=== PATIENT | male | born 1950 | race Caucasian/White ===

== ENCOUNTER 2019-04-25 16:00 | Emergency (ER) | payer OTHER ==
[2019-04-25 18:58] LABS: ABSOLUTE LYMPHOCYTES (AUTO) 2.6 10^3/uL (0.5-4.7); ABSOLUTE MONOCYTES (AUTO) 0.5 10^3/uL (0.1-1.4); ABSOLUTE NEUT (AUTO) 2.2 10^3/uL (1.7-8.2); BASOPHILS % (AUTO) 0.6 % (0-2); EOSINOPHILS % (AUTO) 0.8 % (0-6); HEMATOCRIT 47.5 % (37.9-51.0); HEMOGLOBIN 16.2 g/dL (13.5-17.0); MEAN CORPUSCULAR HEMOGLOBIN 31.1 pg (27.0-33.4); MEAN CORPUSCULAR HGB CONC 34.2 g/dL (32.0-36.0); MEAN CORPUSCULAR VOLUME 91 fl (80-97); MONOCYTES % (AUTO) 8.9 % (3-13); PLATELET COUNT 330 10^3/uL (150-450); RED BLOOD COUNT 5.22 10^6/uL (4.35-5.55); RED CELL DISTRIBUTION WIDTH 13.8 % (11.5-14.0); SEGMENTED NEUTROPHILS % (AUTO) 41.7 % (42-78); TOTAL CELLS COUNTED % (AUTO) 100 %; WHITE BLOOD COUNT 5.3 10^3/uL (4.0-10.5)
[2019-04-25 19:01] LABS: APPEARANCE,URINE SLIGHTLY-CLOUDY; BILIRUBIN,URINE NEGATIVE (NEGATIVE); COLOR,URINE AMBER; GLUCOSE, URINE NEGATIVE (NEGATIVE); KETONES,URINE NEGATIVE (NEGATIVE); LEUKOCYTE ESTERASE,URINE NEGATIVE (NEGATIVE); NITRITE,URINE NEGATIVE (NEGATIVE); PROTEIN,URINE 30 mg/dL (NEGATIVE); URINE SPECIFIC GRAVITY 1.023
[2019-04-25 19:13] LABS: ALKALINE PHOSPHATASE 106 U/L (38-126); ANION GAP 10 (5-19); ASPARTATE AMINO TRANSFERASE 64 U/L (17-59); BILIRUBIN,DIRECT 0.3 mg/dL (0.0-0.4); BILIRUBIN,TOTAL 0.8 mg/dL (0.2-1.3); BLOOD UREA NITROGEN 14 mg/dL (7-20); CARBON DIOXIDE 28 mmol/L (22-30); CHLORIDE 104 mmol/L (98-107); GLUCOSE 89 mg/dL (75-110); POTASSIUM 4.3 mmol/L (3.6-5.0); TOTAL PROTEIN 7.9 g/dL (6.3-8.2)
[2019-04-25 19:21] LABS: URINE AMPHETAMINES SCREEN NEGATIVE; URINE BARBITURATES SCREEN NEGATIVE; URINE BENZODIAZEPINES SCREEN NEGATIVE; URINE MARIJUANA (THC) SCREEN NEGATIVE; URINE METHADONE SCREEN NEGATIVE; URINE PHENCYCLIDINE SCREEN NEGATIVE
[2019-04-25 19:27] LABS: URINE COCAINE SCREEN UNCONFIRMED POSITIVE
--- NOTE | 2019-04-25 19:39 | ER Document Report ---
ED Medical Screen (RME) - General Chief Complaint: Wound Infection Stated Complaint: BACK PAIN Time Seen by Provider: 04/25/19 17:05 Mode of Arrival: Ambulatory Information source: Patient Notes: 68-year-old male presents emergency department with complaints of necrotic area to his back. He gives history of recent hospitalization in [place]. Reports that approximately 2 weeks ago he fell in his bedroom and laid there for 4 days. He was admitted to the hospital for rhabdo for approximately 10 days. He was treated for acute kidney injury, rhabdo and the wound to his back. He reports there is a black wound to his back. Patient's daughter brought him home and reports it is worse than she thought. Denies fever vomiting diarrhea. Patient has discharge instructions from his recent hospital stay with him. I have greeted and performed a rapid initial assessment of this patient. A comprehensive ED assessment and evaluation of the patient, analysis of test results and completion of the medical decision making process will be conducted by additional ED providers. TRAVEL OUTSIDE OF THE [place] IN LAST 30 DAYS: No - Related Data Allergies/Adverse Reactions: No Known Allergies Allergy (Verified 04/25/19 17:02) Past Medical History - Social History Frequency of alcohol use: None Drug Abuse: None Physical Exam - Vital signs Vitals: Temp Pulse Resp BP Pulse Ox 97.6 F 109 H 24 H 136/89 H 98 04/25/19 16:05 04/25/19 16:05 04/25/19 16:05 04/25/19 16:05 04/25/19 16:05 Course - Vital Signs Vital signs: Temp Pulse Resp BP Pulse Ox 97.6 F 109 H 24 H 136/89 H 98 04/25/19 16:05 04/25/19 16:05 04/25/19 16:05 04/25/19 16:05 04/25/19 16:05 - Laboratory Result Diagrams: 04/25/19 18:00 04/25/19 18:00 Laboratory results interpreted by me: 04/25/19 04/25/19 04/25/19 18:00 18:00 18:00 Lymph % (Auto) 48.0 H Seg Neutrophils % 41.7 L AST 64 H Urine Protein 30 H Urine Urobilinogen 2.0 H
--- NOTE | 2019-04-25 22:14 | ER Document Report ---
ED General - General Chief Complaint: Wound Infection Stated Complaint: BACK PAIN Time Seen by Provider: 04/25/19 17:05 Primary Care Provider: TORRES GILBERT [WELDING MACHINE ASSEMBLER] - Follow up as needed FAY LARA MD [ACTIVE STAFF] - Follow up as needed Mode of Arrival: Ambulatory Information source: Patient TRAVEL OUTSIDE OF THE [place] IN LAST 30 DAYS: No - HPI Onset: Other - over the last 1-2 weeks Onset/Duration: Gradual Quality of pain: Pressure Severity: Moderate Pain Level: 2 Associated symptoms: None. denies: Chills, Fever, Nausea, Vomiting Exacerbated by: Other - laying or sitting on his wound Relieved by: Other - sitting on Similar symptoms previously: No Recently seen / treated by doctor: No Notes: 68 year old male who was recently admitted to an outside hospital for Rhabdomyolisis after a fall and being unable to get up here for evaluation of a sacral decubitus ulcer. The patient was apparently laying on his apartment floor for 4-5 days and then he was laying in a hospital bed for over a week and at some point he developed an ulcer. One of the patient's family members noticed how bad the ulcer looked like today so the patient was told to come to an ER for evaluation. The patient has not been having systemic symptoms such as fevers, chills, sweats, nausea, vomiting. - Related Data Allergies/Adverse Reactions: No Known Allergies Allergy (Verified 04/25/19 17:02) Past Medical History - General Information source: Patient - Social History Smoking Status: Former Smoker Frequency of alcohol use: None Drug Abuse: None Lives with: Family Family History: Reviewed & Not Pertinent Patient has suicidal ideation: No Patient has homicidal ideation: No Review of Systems - Review of Systems Constitutional: No symptoms reported EENT: No symptoms reported Cardiovascular: No symptoms reported Respiratory: No symptoms reported Gastrointestinal: No symptoms reported Genitourinary: No symptoms reported Male Genitourinary: No symptoms reported Musculoskeletal: No symptoms reported Skin: Other - sacral decubitus ulcer with area of necrosis in the middle Hematologic/Lymphatic: No symptoms reported Neurological/Psychological: No symptoms reported -: Yes All other systems reviewed and negative Physical Exam - Vital signs Vitals: Temp Pulse Resp BP Pulse Ox 97.6 F 109 H 24 H 136/89 H 98 04/25/19 16:05 04/25/19 16:05 04/25/19 16:05 04/25/19 16:05 04/25/19 16:05 - Notes Notes: GENERAL: Well-appearing, well-nourished and in no acute distress. HEAD: Atraumatic, normocephalic. EYES: Pupils equal round and reactive to light, extraocular movements intact, sclera anicteric, conjunctiva are normal. ENT: TMs normal, nares patent, oropharynx clear without exudates. Moist mucous membranes. NECK: Normal range of motion, supple without lymphadenopathy or JVD. LUNGS: Breath sounds clear to auscultation bilaterally and equal. No wheezes rales or rhonchi. HEART: Regular rate and rhythm without murmurs, rubs or gallops. ABDOMEN: Soft, nontender, normoactive bowel sounds. No guarding, no rebound. No masses appreciated. EXTREMITIES: Normal range of motion, no pitting or edema. No clubbing or cyanosis. NEUROLOGICAL: Cranial nerves II through XII grossly intact. Normal speech, normal gait. PSYCH: Normal mood, normal affect. SKIN: Moderate sized sacral decubitus ulcer with most of the dermis still intact but an area of necorsis under the dermis in the middle of the ulcer. No active drainage. No fluid collections. No warmth. No surrounding erythema or warm of skin around the ulcer. Course - Re-evaluation Re-evalutation: 04/25/19 22:18 The patient has a sacral decubitus ulcer which has an area of necrotic tissue in the middle. The patient's dermis is still intact however making the staging difficult (stage 1-2 since no breakdown of skin but stage 4 since there is necrotic tissue). Patient is having no systemic signs of infection such as fevers, chills, sweats, nausea, vomiting and here in the ER his temp and WBC are normal. The wound edges seem to be healing well and there is no sign of an active infection of the skin or deep tissue on exam (no erythema, warmth, fluid collection). Plan to have nursing redress his wound in the ER and to have the patient follow up in the wound clinic. - Vital Signs Vital signs: Temp Pulse Resp BP Pulse Ox 98.0 F 74 16 132/78 H 98 04/25/19 22:24 04/25/19 22:24 04/25/19 22:24 04/25/19 22:24 04/25/19 16:05 - Laboratory Result Diagrams: 04/25/19 18:00 04/25/19 18:00 Laboratory results interpreted by me: 04/25/19 04/25/19 04/25/19 18:00 18:00 18:00 Lymph % (Auto) 48.0 H Seg Neutrophils % 41.7 L AST 64 H Urine Protein 30 H Urine Urobilinogen 2.0 H Discharge - Discharge Clinical Impression: Sacral decubitus ulcer Qualifiers: Pressure injury stage: unspecified pressure injury stage Qualified Code(s): L89.159 - Pressure ulcer of sacral region, unspecified stage Condition: Stable Disposition: HOME, SELF-CARE Instructions: Decubitus Ulcer ([facility]) Additional Instructions: Keep your sacral decubitus ulcer covered with a dressing until seen by wound care. Follow up in a Wound Care Clinic or with a Wound Care Surgeon. You may need debridement of your sacral decubitus ulcer in the near future so make an appointment to follow up [facility]. Seek medical attention sooner for signs of systemic infection such as fevers, chills, sweats, nausea, vomiting. Call the [facility] at to schedule an appointment for tomorrow or the next day. Referrals: TORRES GILBERT [WELDING MACHINE ASSEMBLER] - Follow up as needed FAY LARA MD [ACTIVE STAFF] - Follow up as needed
[2019-04-25 23:05] VITALS: BP 137/77
== END 2019-04-25 23:05 | disposition home or self-care (01) ==
LOC: ER 16:00
DX: L89.159 Pressure ulcer of sacral region, unspecified stage (principal); Z87.891 Personal history of nicotine dependence
CPT/HCPCS: 36415; 80053; 80307; 81001; 85025; 99283